=== PATIENT | female | born 1960 | race Caucasian/White ===

== ENCOUNTER 2016-07-19 15:12 | Emergency (ER) | payer BC, OTHER ==
[~2016-07-19] VITALS: Ht 165.1 cm; Wt 110.0 kg
[~2016-07-19 15:12] MED LIST: CLON.2 PO; DIOV160T60 PO; HYDR-2768 PO; METO25TA6 PO; PROM25SU8 PO
[2016-07-19 15:23] VITALS: BP 170/83; PULSE 82; RESP 18; TEMP 98.3; O2SAT 97
[2016-07-19 15:30] VITALS: O2SAT 97
[2016-07-19] MEDS ORDERED: AMLO5TAB2 PO (15:31)
[2016-07-19] MEDS ORDERED: LEVO50TA4 PO (15:31)
[2016-07-19] MEDS ORDERED: DIOV320T PO (15:31)
[2016-07-19] MEDS ORDERED: ATOR20TA15 PO (15:31)
[2016-07-19] MEDS ORDERED: TOPR25TA PO (15:31)
--- NOTE | 2016-07-19 15:42 | PD ---
HPI Chief Complaint: Pain: Acute or Chronic Time Seen by Provider: 15:22 Travel History International Travel<30 days: No Contact w/Intl Traveler<30days: No Traveled to known affect area: No History of Present Illness HPI So 56-year-old woman presents to the emergency department complaining of left shoulder pain ongoing for the past 2 days. Symptoms been off-and-on of waxing and waning severity. There is no clear precipitating factors. Not worse with certain movements. Not affected by eating. Has not affected by exertion. She states she's had symptoms in the past that she should receive using keyboarding typing a lot were her shoulder gets tight. States she is not really had symptoms similar to this before. No shortness of breath. No diaphoresis. No history of CAD. She had a stress treadmill stress test that was normal 6 or 7 years ago. She otherwise has been feeling generally well and healthy. Only medical history is hypertension diabetes. Does not smoke. No family history of heart disease. History Past Medical History Narrative Medical Hypertension Diet-controlled diabetes Hypothyroidism Tetanus Vaccination: Unknown Influenza Vaccination: No Menopausal: Yes Social History Alcohol Use: No Tobacco Use: No Allergies-Medications (Allergen,Severity, Reaction): Coded Allergies: Shellfish (Verified Allergy, Severe, Anaphylaxis, 07/19/16) Reported Meds & Prescriptions Reported Meds & Active Scripts Active Reported Atorvastatin (Atorvastatin Calcium) 20 Mg Tab 20 Mg PO HS Amlodipine (Amlodipine Besylate) 5 Mg Tab 5 Mg PO DAILY Diovan (Valsartan) 320 Mg Tab 320 Mg PO DAILY Toprol XL (Metoprolol Succinate) 25 Mg Tab 25 Mg PO DAILY Levothyroxine (Levothyroxine Sodium) 50 Mcg Tab 50 Mcg PO DAILY Review of Systems Except as stated in HPI: all other systems reviewed are Neg Physical Exam Narrative GENERAL: Well-appearing 56-year-old woman, no acute distress. SKIN: Warm and dry. HEAD: Atraumatic. Normocephalic. CARDIOVASCULAR: Regular rate and rhythm. No murmur appreciated. RESPIRATORY: No accessory muscle use. Clear to auscultation. Breath sounds equal bilaterally. GASTROINTESTINAL: Abdomen soft, non-tender, nondistended. Hepatic and splenic margins not palpable. MUSCULOSKELETAL: No obvious deformities. No edema. NEUROLOGICAL: Awake and alert. No obvious cranial nerve deficits. Motor grossly within normal limits. Normal speech. PSYCHIATRIC: Appropriate mood and affect; insight and judgment normal. Data Data Last Documented VS Vital Signs Date Time Temp Pulse Resp B/P Pulse Ox O2 Delivery O2 Flow Rate FiO2 07/19/16 16:19 84 18 153/76 95 Room Air 07/19/16 15:23 98.3 Orders Electrocardiogram (07/19/16 15:35) Complete Blood Count With Diff (07/19/16 15:35) Comprehensive Metabolic Panel (07/19/16 15:35) Magnesium (Mg) (07/19/16 15:35) Prothrombin Time / Inr (Pt) (07/19/16 15:35) Act Partial Throm Time (Ptt) (07/19/16 15:35) Troponin I (07/19/16 15:35) Lipase (07/19/16 15:35) Ecg Monitoring (07/19/16 15:35) Iv Access Insert/Monitor (07/19/16 15:35) Oximetry (07/19/16 15:35) Oxygen Administration (07/19/16 15:35) Aspirin Chew (Aspirin Chew) (07/19/16 15:45) Sodium Chloride 0.9% Flush (Ns Flush) (07/19/16 15:45) Sodium Chlorid 0.9% 500 Ml Inj (Ns 500 M (07/19/16 15:45) Chest, Pa & Lat (07/19/16 15:35) Labs Laboratory Tests Test 07/19/16 15:45 White Blood Count 9.8 TH/MM3 Red Blood Count 4.98 MIL/MM3 Hemoglobin 13.6 GM/DL Hematocrit 40.2 % Mean Corpuscular Volume 80.6 FL Mean Corpuscular Hemoglobin 27.2 PG Mean Corpuscular Hemoglobin 33.7 % Concent Red Cell Distribution Width 13.8 % Platelet Count 257 TH/MM3 Mean Platelet Volume 9.4 FL Neutrophils (%) (Auto) 64.5 % Lymphocytes (%) (Auto) 23.2 % Monocytes (%) (Auto) 5.7 % Eosinophils (%) (Auto) 4.5 % Basophils (%) (Auto) 2.1 % Neutrophils # (Auto) 6.3 TH/MM3 Lymphocytes # (Auto) 2.3 TH/MM3 Monocytes # (Auto) 0.6 TH/MM3 Eosinophils # (Auto) 0.4 TH/MM3 Basophils # (Auto) 0.2 TH/MM3 CBC Comment DIFF FINAL Differential Comment Prothrombin Time 10.4 SEC Prothromb Time International 0.9 RATIO Ratio Activated Partial 27.6 SEC Thromboplast Time Sodium Level 141 MEQ/L Potassium Level 3.8 MEQ/L Chloride Level 104 MEQ/L Carbon Dioxide Level 28.4 MEQ/L Anion Gap 9 MEQ/L Blood Urea Nitrogen 16 MG/DL Creatinine 0.90 MG/DL Estimat Glomerular Filtration 65 ML/MIN Rate Random Glucose 120 MG/DL Calcium Level 8.7 MG/DL Magnesium Level 1.9 MG/DL Total Bilirubin 0.3 MG/DL Aspartate Amino Transf 25 U/L (AST/SGOT) Alanine Aminotransferase 31 U/L (ALT/SGPT) Alkaline Phosphatase 116 U/L Troponin I LESS THAN 0.02 NG/ML Total Protein 7.3 GM/DL Albumin 3.6 GM/DL Lipase 355 U/L MDM Medical Decision Making Medical Screen Exam Complete: Yes Emergency Medical Condition: Yes Interpretation(s) My review of EKG: Normal sinus rhythm at a rate of 79, normal axis, normal intervals, no definite evidence of acute ischemia. LABS: CBC unremarkable. CMP unremarkable. Troponin negative. Lipase normal. Coags unremarkable. My review of chest x-ray: Negative. Differential Diagnosis Musculoskeletal pain, pneumothorax, mass, ACS, PE, other Narrative Course Medical decision making INITIAL: Is a 56-year-old woman who presents to the emergency department complaining of left shoulder pain, mostly in the back on scapula. Looks well. History mildly concerning for ACS. Looks otherwise well. No physical examination is a PE. Suspect this is musculoskeletal. We'll check labs EKG chest x-ray reassess. FINAL: Labs are unremarkable. EKG equivocal. Patient is low risk by a heart score of 2, 1. for age, 1. for 2 risk factors. Discussed this with the patient. She has an appointment with her primary physician in 2 days. Recommend outpatient follow-up, return for any worsening symptoms. Diagnosis Primary Impression: Left shoulder pain Qualified Code: M25.512 - Acute pain of left shoulder Additional Instructions: Take ibuprofen or acetaminophen as needed for pain. Follow-up with your primary doctor on Wednesday as scheduled. Return to the emergency department for any worsening chest pain, any exertional pain, any shortness of breath, or any other new or worsening symptoms. Med/Other Pt SpecificInfo: No Change to Meds Disposition: 01 DISCHARGE HOME Condition: Stable Isiah Ibrahim MD Jul 19, 2016 15:42
[2016-07-19] MEDS ORDERED: SODIUM CHLORIDE 0.9% FLUSH 5 ML FLUSH IVF PRN (15:45)
[2016-07-19] MEDS ORDERED: ASPIRIN 81 MG CHEW TAB PO ONE (15:45)
[2016-07-19] MEDS ORDERED: SODIUM CHLORID 0.9% 500 ML INJ 500 ML IV ONE (15:45)
[2016-07-19 15:54] LABS: AUTOMATED NEUTROPHIL # 6.3 TH/MM3 (1.8-7.7); BASOPHIL # 0.2 TH/MM3 (0-0.2); BASOPHIL % 2.1 % (0.0-2.0); EOSINOPHIL # 0.4 TH/MM3 (0-0.4); EOSINOPHIL % 4.5 % (0.0-4.0); HEMATOCRIT 40.2 % (35.0-46.0); LYMPH % 23.2 % (9.0-44.0); LYMPHOCYTE # 2.3 TH/MM3 (1.0-4.8); MEAN CELL VOLUME 80.6 FL (80.0-100.0); MEAN CORPUSCULAR HEMOGLOBIN 27.2 PG (27.0-34.0); MEAN CORPUSCULAR HGB CONC 33.7 % (32.0-36.0); MONO % 5.7 % (0.0-8.0); NEUT % 64.5 % (16.0-70.0); PLATELET COUNT 257 TH/MM3 (150-450); RED BLOOD COUNT 4.98 MIL/MM3 (4.00-5.30); RED CELL DISTRIBUTION WIDTH 13.8 % (11.6-17.2); WHITE BLOOD COUNT 9.8 TH/MM3 (4.0-11.0)
[2016-07-19 15:56] LABS: HEMO FLAGS DIFF FINAL
[2016-07-19 16:01] LABS: CHLORIDE 104 MEQ/L (98-107); POTASSIUM 3.8 MEQ/L (3.5-5.1); SODIUM (NA) 141 MEQ/L (136-145)
[2016-07-19 16:05] LABS: ANION GAP 9 MEQ/L (5-15); BICARBONATE 28.4 MEQ/L (21.0-32.0); BLOOD UREA NITROGEN 16 MG/DL (7-18); MAGNESIUM 1.9 MG/DL (1.5-2.5)
[2016-07-19 16:07] LABS: APTT (PATIENT) 27.6 SEC (24.3-30.1); INTERNATIONAL NORMALIZED RATIO 0.9 RATIO; PROTHROMBIN TIME - PATIENT 10.4 SEC (9.8-11.6)
[2016-07-19 16:08] LABS: ALT (GPT) 31 U/L (10-53); AST (GOT) 25 U/L (15-37); GLOMERULAR FILTRATION RATE 65 ML/MIN (>89)
[2016-07-19 16:09] LABS: TOTAL BILIRUBIN ADULT 0.3 MG/DL (0.2-1.0)
[2016-07-19 16:11] LABS: ALKALINE PHOSPHATASE 116 U/L (45-117)
[2016-07-19 16:19] VITALS: BP 153/76; PULSE 84; RESP 18; O2SAT 95
--- NOTE | 2016-07-19 16:51 | RADHPO ---
EXAM DATE/TIME: 07/19/2016 16:25 [facility] COMPARISON: No previous studies available for comparison. INDICATIONS : Left upper chest, left arm pain MEDICAL HISTORY : None. SURGICAL HISTORY : None. ENCOUNTER: Initial ACUITY: 2 days PAIN SCORE: 5/10 LOCATION: Left upper chest arm FINDINGS: PA and lateral views of the chest demonstrate the lungs to be symmetrically aerated without evidence of mass, infiltrate or effusion. The cardiomediastinal contours are unremarkable. Osseous structure s are intact. CONCLUSION: No acute disease. Ulysses Higgins MD on July 19, 2016 at 16:49 Board Certified Radiologist. This report was verified electronically.
--- NOTE | 2016-07-20 17:19 | EKG ---
Date Performed: 07/19/2016 Time Performed: 15:46:36 PTAGE: 56 years EKG: Sinus rhythm Possible inferior infarct - age undetermined Compared to prior tracing no significant change Abnorma l ECG PREVIOUS TRACING : 06/08/2008 15.38 DOCTOR: Gracia Sullivan Interpretating Date/Time 07/20/2016 17:17:08
== END 2016-07-19 17:55 | disposition home or self-care (01) ==
LOC: PHED 15:12
DX: M25.512 Pain in left shoulder (principal); R94.31 Abnormal electrocardiogram [ECG] [EKG]; I10 Essential (primary) hypertension; E11.9 Type 2 diabetes mellitus without complications; E03.9 Hypothyroidism, unspecified
CPT/HCPCS: 71020; 80053; 83690; 83735; 84484; 85025; 85610; 85730; 93005; 96360; 99284; J7040

== ENCOUNTER 2017-10-30 18:44 | Emergency (ER) | payer OTHER ==
[~2017-10-30] VITALS: Ht 165.1 cm; Wt 113.6 kg
[~2017-10-30 18:44] MED LIST changes: +AMLO5TAB2 PO; +ATOR20TA15 PO; -CLON.2 PO; -DIOV160T60 PO; +DIOV320T PO; -HYDR-2768 PO; +LEVO50TA4 PO; -METO25TA6 PO; -PROM25SU8 PO; +TOPR25TA PO
[2017-10-30 18:53] VITALS: BP 181/104; PULSE 98; RESP 18; TEMP 97.9; O2SAT 97
--- NOTE | 2017-10-30 19:21 | PD ---
HPI Chief Complaint: Pain: Acute or Chronic Time Seen by Provider: 19:16 Travel History International Travel<30 days: No Contact w/Intl Traveler<30days: No History of Present Illness HPI Patient presents with concerns of right lower extremity pain and mild swelling. States she does walk frequently. Denies any episodes of non-ambulation. No history of DVT. Medial calf is tender to touch per the patient and the medial thigh feels as if it is cramping. Discomfort has been slightly worse over the last for 5 days. Last night it awoke her from sleep. She is not on any blood thinners. PFSH Past Medical History Cardiovascular Problems: Yes High Cholesterol: Yes Diabetes: Yes (DIET CONTROLED) Patient Takes Glucophage: No Diminished Hearing: No Hypertension: Yes Immunizations Current: Yes Thyroid Disease: Yes ?: Not Menopausal: Yes Past Surgical History Section: Yes Hysterectomy: Yes Other Surgery: Yes (hysterectomy ) Social History Alcohol Use: No Tobacco Use: No Substance Use: No Allergies-Medications (Allergen,Severity, Reaction): Coded Allergies: shellfish derived (Unverified Allergy, Severe, Anaphylaxis, 10/30/17) Reported Meds & Prescriptions Reported Meds & Active Scripts Active Reported Atorvastatin (Atorvastatin Calcium) 20 Mg Tab 20 Mg PO HS Amlodipine (Amlodipine Besylate) 5 Mg Tab 5 Mg PO DAILY Diovan (Valsartan) 320 Mg Tab 320 Mg PO DAILY Toprol XL (Metoprolol Succinate) 25 Mg Tab 25 Mg PO DAILY Levothyroxine (Levothyroxine Sodium) 50 Mcg Tab 50 Mcg PO DAILY Review of Systems General / Constitutional: No: Fever Eyes: No: Visual changes HENT: No: Headaches Cardiovascular: No: Chest Pain or Discomfort Respiratory: No: Shortness of Breath Gastrointestinal: No: Abdominal Pain Genitourinary: No: Dysuria Musculoskeletal: Positive: Pain Skin: No Rash Neurologic: No: Weakness Psychiatric: No: Depression Endocrine: No: Polydipsia Hematologic/Lymphatic: No: Easy Bruising Physical Exam Narrative GENERAL: Well-nourished, well-developed patient. SKIN: Focused skin assessment warm/dry. HEAD: Normocephalic. EYES: No scleral icterus. No injection or drainage. NECK: Supple, trachea midline. No JVD or lymphadenopathy. CARDIOVASCULAR: Regular rate and rhythm without murmurs, gallops, or rubs. RESPIRATORY: Breath sounds equal bilaterally. No accessory muscle use. GASTROINTESTINAL: Abdomen soft, non-tender, nondistended. MUSCULOSKELETAL: No cyanosis, or edema. BACK: Nontender without obvious deformity. No CVA tenderness. Examination right lower extremity reveals some mild swelling about the medial malleolus without ecchymosis erythema or edema negative Homans examination of the thigh reveals no erythema edema or ecchymosis Data Data Last Documented VS Vital Signs Date Time Temp Pulse Resp B/P (MAP) Pulse Ox O2 Delivery O2 Flow Rate FiO2 10/30/17 18:53 97.9 98 18 181/104 (129) 97 Orders Orders Us Leg Venous Doppler (10/30/17 ) MDM Medical Decision Making Medical Screen Exam Complete: Yes Emergency Medical Condition: Yes Differential Diagnosis Muscle cramps, phlebitis, DVT, muscular strain Narrative Course Assessment plan discussed with patient at bedside. Ultrasound of the right lower extremity revealed no acute DVT Diagnosis Primary Impression: Musculoskeletal pain of right lower extremity Additional Instructions: Encourage nonsteroidal anti-inflammatories warm heat gentle stretching strengthening and massage. Discussed tonic water with quinine to alleviate cramps. Encouraged to follow-up with PCP. Return to the emergency room with any onset of new symptoms. Med/Other Pt SpecificInfo: Prescription(s) given, No Meds Exist/No RX given Disposition: 01 DISCHARGE HOME Condition: Good Tayo Roth MD October 30, 2017 19:21
--- NOTE | 2017-10-30 20:54 | RADRPT ---
EXAM DATE/TIME: 10/30/2017 20:25 [facility] COMPARISON: No previous studies available for comparison. INDICATIONS : Right leg pain. MEDICAL HISTORY : Hypercholesterolemia. Hypertension. Thyroid disease. Diabetes. SURGICAL HISTORY : Hysterectomy. section. ENCOUNTER: Initial ACUITY: 2 day PAIN SCORE: 2/10 LOCATION: Right leg. TECHNIQUE: Venous ultrasound of the leg was performed from the inguinal ligament to the proximal calf. Real-reji e, color Doppler and spectral tracing, compression and augmentation techniques were used. FINDINGS: There is normal compressibility of the deep venous system from the inguinal region to the proximal ca lf. No echogenic clot is seen in the lumen of the common femoral, femoral, popliteal, and posterior tibial veins. There is a normal response of the venous system to proximal and distal augmentation an d respiration. CONCLUSION: No evidence of deep venous thrombosis within the right lower extremity. Rebel Buckner MD on October 30, 2017 at 20:52 Board Certified Radiologist. This report was verified electronically.
[2017-10-30 21:11] VITALS: BP 150/85
== END 2017-10-30 21:12 | disposition home or self-care (01) ==
LOC: PHED 18:44
DX: M79.1 Myalgia (principal); M79.604 Pain in right leg; E78.00 Pure hypercholesterolemia, unspecified; E11.9 Type 2 diabetes mellitus without complications; E07.9 Disorder of thyroid, unspecified; I10 Essential (primary) hypertension
CPT/HCPCS: 93971; 99284